=== PATIENT | female | born 1970 | race Two or more races ===

== ENCOUNTER 2023-12-23 12:29 | Emergency (ER) | payer OTHER, MEDICARE ==
[~2023-12-23] VITALS: Ht 152.4 cm; Wt 115.7 kg
[2023-12-23] MEDS ORDERED: ACETAMINOPHEN ES 500 MG TABLET PO ONE (13:00)
[2023-12-23] MEDS ORDERED: IBUPROFEN 400 MG TABLET PO ONE (13:00)
[2023-12-23] MEDS ORDERED: IBUPROFEN 400 MG TABLET ONE (13:06)
[2023-12-23] MEDS ORDERED: ACETAMINOPHEN ES 500 MG TABLET ONE (13:06)
[2023-12-23 14:16] VITALS: BP 150/61; TEMP 98.3; O2SAT 100
== END 2023-12-23 14:17 | disposition home or self-care (01) ==
LOC: ER 12:32
DX: R51.9 Headache, unspecified (principal); R07.89 Other chest pain; I10 Essential (primary) hypertension; E11.9 Type 2 diabetes mellitus without complications; V89.2XXA Person injured in unspecified motor-vehicle accident, traffic, initial encounter; Y93.89 Activity, other specified; Y92.89 Other specified places as the place of occurrence of the external cause; Y99.8 Other external cause status
CPT/HCPCS: 70450-TC; 71045-TC